=== PATIENT | male | born 1950 | race Caucasian/White ===

== ENCOUNTER 2017-09-22 11:04 | Emergency (ER) | payer MEDICARE ==
[2017-09-22 11:05] VITALS: BP 173/88; PULSE 84; RESP 18; TEMP 98; O2SAT 96
--- NOTE | 2017-09-22 11:53 | RADRPT ---
EXAM DATE/TIME: 09/22/2017 11:25 [facility] COMPARISON: No previous studies available for comparison. INDICATIONS : Pain. MEDICAL HISTORY : Gout SURGICAL HISTORY : None. ENCOUNTER: Initial ACUITY: 4 - 6 days PAIN SCORE: 9/10 LOCATION: Right Ankle FINDINGS: Three view exam was performed of the right ankle. The bony structures are in normal alignment. No e vidence of fracture, dislocation, or soft tissue swelling. The ankle mortise is intact. No radiopaq ue foreign bodies are seen. Bony mineralization is normal. CONCLUSION: Unremarkable examination of the right ankle. Zach Daniels MD on September 22, 2017 at 11:50 Board Certified Radiologist. This report was verified electronically.
[2017-09-22] MEDS ORDERED: ALLO100T PO (11:57)
--- NOTE | 2017-09-22 12:26 | PD ---
HPI Chief Complaint: Injury Time Seen by Provider: 12:05 Travel History International Travel<30 days: No Contact w/Intl Traveler<30days: No Traveled to known affect area: No History of Present Illness HPI 67-year-old male here with nontraumatic right ankle pain 7 days. Patient has history of gout. He reports his pain is similar. His usual gouty attacks are in his bilateral great toes. He denies fever or chills. He does report that he recently returned home from a camping vacation where he was drinking beer and eating a large amount of red meat which she believes prompted this gout attack. Symptom severity is moderate. Aggravated by walking and slightly relieved with rest. PFSH Past Medical History Cardiovascular Problems: Yes (HTN) Social History Alcohol Use: No Tobacco Use: No Substance Use: No Allergies-Medications (Allergen,Severity, Reaction): Coded Allergies: Penicillins (Verified Allergy, Unknown, 09/22/17) Reported Meds & Prescriptions Reported Meds & Active Scripts Active Reported Allopurinol 100 Mg Tab 100 Mg PO DAILY Review of Systems Except as stated in HPI: all other systems reviewed are Neg General / Constitutional: No: Fever Physical Exam Narrative GENERAL: Alert male. Well-appearing. SKIN: Warm and dry. HEAD: Normocephalic. EYES: No scleral icterus. No injection or drainage. NECK: Supple, trachea midline. No JVD or lymphadenopathy. CARDIOVASCULAR: Regular rate and rhythm RESPIRATORY: Breath sounds equal bilaterally. No accessory muscle use. MUSCULOSKELETAL: No cyanosis, or edema. Right ankle: Mild tenderness and swelling to the lateral malleolus. No warmth or erythema. Joint is stable. 2 + dorsal pedis pulse. Brisk cap refill. Data Data Last Documented VS Vital Signs Date Time Temp Pulse Resp B/P (MAP) Pulse Ox O2 Delivery O2 Flow Rate FiO2 09/22/17 12:45 09/22/17 11:05 98.0 84 18 96 Room Air Orders Orders Ankle, Complete ([id number]) (09/22/17 ) Dexamethasone Inj (Decadron Inj) (09/22/17 12:30) Ed Discharge Order (09/22/17 12:27) MDM Medical Decision Making Medical Screen Exam Complete: Yes Emergency Medical Condition: Yes Differential Diagnosis Gouty arthritis, ankle sprain, ankle fracture Narrative Course 67-year-old male with right ankle pain 7 days. Patient denies injury. Patient has history of gout reports this pain is similar. Exam he has mild tenderness and swelling of the lateral malleolus. Joint is stable. Extremity is neurovascular intact. X-ray is negative for fracture. The patient has a perception for Indocin at home. He was instructed to discontinue his allopurinol, start Indocin, follow gout diet, follow up with his PCP. Diagnosis Primary Impression: Ankle pain Qualified Codes: M25.571 - Pain in right ankle and joints of right foot Referrals: Primary Care Physician Additional Instructions: Start the indomethacin as directed. Follow a low purine diet. Follow-up with her primary doctor. Disposition: 01 DISCHARGE HOME Condition: Stable Jael Mahoney Sep 22, 2017 12:26
[2017-09-22] MEDS ORDERED: DEXAMETHASONE SOD PHOS 4 MG/ML VIAL IM ONE (12:30)
== END 2017-09-22 12:54 | disposition home or self-care (01) ==
LOC: NEPK 11:04
DX: M25.571 Pain in right ankle and joints of right foot (principal); I10 Essential (primary) hypertension
CPT/HCPCS: 73610; 96372; 99284; J1100

== ENCOUNTER 2018-01-29 16:10 | Emergency (ER) | payer MEDICARE ==
[~2018-01-29] VITALS: Ht 170.2 cm; Wt 90.0 kg
[~2018-01-29 16:10] MED LIST: ALLO100T PO
[2018-01-29 16:15] VITALS: BP 169/81; PULSE 76; RESP 16; TEMP 97.8; O2SAT 99
[2018-01-29] MEDS ORDERED: oxyCODONE/ACETAMINOPHEN 10 MG/325 MG TAB PO ONE (16:45)
[2018-01-29] MEDS ORDERED: predniSONE 20 MG TAB PO ONE (16:45)
[2018-01-29] MEDS ORDERED: ASPI81CH6 CHEW (16:51)
[2018-01-29] MEDS ORDERED: LISI-515 PO (16:51)
[2018-01-29] MEDS ORDERED: DICL75TA PO (16:51)
[2018-01-29] MEDS ORDERED: AMLO10TA2 PO (16:51)
[2018-01-29] MEDS ORDERED: GEMF600T PO (16:51)
[2018-01-29] MEDS ORDERED: PANT20TA2 PO (16:51)
--- NOTE | 2018-01-29 18:39 | RADRPT ---
EXAM DATE/TIME: 01/29/2018 17:33 [facility] COMPARISON: No previous studies available for comparison. INDICATIONS : Radiculopathy. Low back pain for two months. MEDICAL HISTORY : Hypertension. SURGICAL HISTORY : Hernia sx. ENCOUNTER: Initial ACUITY: 2 months PAIN SCORE: 8/10 LOCATION: Bilateral lower back region. TECHNIQUE: Multiplanar multisequence MRI of the lumbar spine was performed without contrast. FINDINGS: There are couple millimeters of degenerative retrolisthesis at L4/L5 and L5/S1. No fracture or acute appearing malalignment demonstrated. Vertebral bodies have normal height. Normal conus terminates at the level of L2. Scattered vertebral body hemangiomas are noted. T12-L1: The disc is desiccated but otherwise normal. Mild bilateral facet osteoarthritis. No foraminal or spi nal stenosis. L1-L2: The disc is within normal limits. Mild bilateral facet osteoarthritis. No foraminal or spinal stenosi s. L2-L3: The disc is desiccated and has mild loss of height. There is diffuse bulging of the disc annulus and mild bilateral facet osteoarthritis. There is mild bilateral foraminal stenosis, mostly on the left. L3-L4: The disc is desiccated and has mild loss of height. Small, broad/diffuse but especially left paracent ral/foraminal/lateral disc protrusion. There is mild narrowing of the left lateral recess and mild ri ght, moderate left foraminal stenosis. L4-L5: The disc is desiccated and has moderate to severe loss of height. There is endplate marrow edema. A d iffuse disc osteophyte complex is present. There is a superimposed large, inferiorly extruded right p aracentral disc fragment with narrowing of the right lateral recess. There is mild to moderate bilate ral foraminal stenosis. Grade 1 degenerative retrolisthesis. L5-S1: The disc is desiccated and has severe loss of height. Grade 1 degenerative retrolisthesis. Mild endpl ate marrow edema. There is a small moderate, broad/diffuse disc osteophyte complex and moderate bilat eral facet osteoarthritis. Mild spinal stenosis without definite transiting nerve root impingement. T here is moderate to severe right and moderate left foraminal stenosis. CONCLUSION: 1. Multilevel lumbar spine degenerative changes as detailed above. Most findings appear chronic but t here is a age-indeterminate large, inferiorly extruded right paracentral disc fragment at L4/L5 that is impinging on the transiting right L5 nerve root. 2. High-grade bilateral foraminal stenosis at L5/S1. Also moderate left foraminal stenosis at L3/L4. Generally mild or mild to moderate foraminal stenosis at other levels. Please see above. 3. Grade 1 degenerative retrolisthesis at both L4/L5 and L5/S1. I don't see a fracture or acute appea ring malalignment. Derrick Saenz MD on January 29, 2018 at 18:30 Board Certified Radiologist. This report was verified electronically.
--- NOTE | 2018-01-29 18:55 | PD ---
HPI Chief Complaint: Pain: Acute or Chronic Time Seen by Provider: 16:23 Travel History International Travel<30 days: No Contact w/Intl Traveler<30days: No Traveled to known affect area: No History of Present Illness HPI 67-year-old male presents emergency department with ongoing severe lower back pain and right hip pain which is been ongoing for 2 months. Patient is seen his orthopedist, Dr. Erickson, who referred him to pain management for a hip injection. He states he went to pain management who ordered an MRI for his lower back to ensure that he did not have a disc issue. Patient states he went to try and get the MRI today but was unable to stand the pain for an MRI to be done appropriately, he therefore went back to pain management which was closed, so he came here. Patient states he has not slept in several days due to the increasing lower back pain and right hip and radicular right leg pain. He denies any specific injury. He has had multiple x-rays of the hip knee and back , but no MRI. He denies bowel or bladder changes, but does have weakness in the right leg which she feels is due to the pain. He feels his right leg is somewhat atrophied over the last 2 months. Patient states his pain is 8 out of 10 sometimes worse. He is only given ibuprofen and tramadol which is not helping. He has no known drug allergies other than penicillin. PFSH Past Medical History Cardiovascular Problems: Yes (HTN) GERD: Yes Gout: Yes Hypertension: Yes Past Surgical History Abdominal Surgery: Yes Social History Alcohol Use: Yes Tobacco Use: Yes Substance Use: No Allergies-Medications (Allergen,Severity, Reaction): Coded Allergies: Penicillins (Verified Allergy, Unknown, 01/29/18) Reported Meds & Prescriptions Reported Meds & Active Scripts Active Gabapentin 100 Mg Cap 100 Mg PO TID Percocet (Oxycodone-Acetaminophen) 5-325 mg Tab 1 Tab PO Q6H PRN Reported Diclofenac Sodium DR (Diclofenac Sodium) 75 Mg Tabdr 75 Mg PO BID Lisinopril 20 Mg Tab 20 Mg PO DAILY Aspirin Low Dose (Aspirin) 81 Mg Chew 81 Mg CHEW DAILY Amlodipine (Amlodipine Besylate) 10 Mg Tab 10 Mg PO DAILY Gemfibrozil 600 Mg Tab 600 Mg PO BIDAC Take 30 minutes prior to breakfast and dinner. Pantoprazole (Pantoprazole Sodium) 20 Mg Tab 20 Mg PO DAILY Allopurinol 100 Mg Tab 100 Mg PO DAILY Review of Systems Except as stated in HPI: all other systems reviewed are Neg General / Constitutional: No: Fever Eyes: No: Visual changes HENT: No: Headaches Cardiovascular: No: Chest Pain or Discomfort Respiratory: No: Shortness of Breath Gastrointestinal: No: Abdominal Pain Genitourinary: No: Dysuria Musculoskeletal: Positive: Myalgias, Arthralgias, Limited ROM, Pain Skin: No Rash Neurologic: No: Weakness Psychiatric: No: Depression Endocrine: No: Polydipsia Hematologic/Lymphatic: No: Easy Bruising Physical Exam Narrative GENERAL: Patient appears in moderate distress. He is ambulatory to the room with a limp on the right SKIN: Warm and dry. Normal color. Normal turgor. No rash. HEAD: Atraumatic. Normocephalic. EYES: Pupils equal and round. No scleral icterus. No injection or drainage. ENT: No nasal bleeding or discharge. Mucous membranes pink and moist. Pharynx is clear. Airways patent. NECK: Trachea midline. Supple and nontender. CARDIOVASCULAR: Regular rate and rhythm. RESPIRATORY: No accessory muscle use. Clear to auscultation. Breath sounds equal bilaterally. GASTROINTESTINAL: Abdomen soft, non-tender, nondistended. Hepatic and splenic margins not palpable. MUSCULOSKELETAL: Extremities without clubbing, cyanosis, or edema. No obvious deformities. Patient has tenderness along the lumbar spine bilaterally but more on the right than the left into the right sciatic notch. He has positive straight leg raise pain at 40. Deep tendon reflexes are 2+ bilaterally in both patellar and Achilles tendons. Patient also has hip pain with inner and outer rotation of the hip. Plantar flexion and dorsiflexion are equal bilaterally. Patient has some diminished ability to flex the right hip which seems more due to pain as opposed to weakness. NEUROLOGICAL: Awake and alert. No obvious cranial nerve deficits. Motor grossly within normal limits. Five out of 5 muscle strength in the arms and legs. Normal speech. PSYCHIATRIC: Appropriate mood and affect; insight and judgment normal. Data Data Last Documented VS Vital Signs Date Time Temp Pulse Resp B/P (MAP) Pulse Ox O2 Delivery O2 Flow Rate FiO2 01/29/18 16:15 97.8 76 16 169/81 (110) 99 Orders Orders Oxycodone-Acetamin 10-325 Mg (Percocet 1 (01/29/18 16:45) Prednisone (Deltasone) (01/29/18 16:45) Mri L Spine W/O Contrast (01/29/18 16:41) Radiology Film Requests (01/29/18 ) Ed Discharge Order (01/29/18 18:57) [facility] Medical Decision Making Medical Screen Exam Complete: Yes Emergency Medical Condition: Yes Differential Diagnosis Lumbar pain. Sciatica. Right hip arthritis. Bursitis. Narrative Course Patient appears in moderate distress but medically stable. Patient was given Percocet 10/325 p.o. now. Patient is given 60 mg prednisone p.o. now. MRI of the lumbar spine is ordered to rule out significant disc impingement. MRI results show: CONCLUSION: 1. Multilevel lumbar spine degenerative changes as detailed above. Most findings appear chronic but there is a age-indeterminate large, inferiorly extruded right paracentral disc fragment at L4/L5 that is impinging on the transiting right L5 nerve root. 2. High-grade bilateral foraminal stenosis at L5/S1. Also moderate left foraminal stenosis at L3/L4. Generally mild or mild to moderate foraminal stenosis at other levels. Please see above. 3. Grade 1 degenerative retrolisthesis at both L4/L5 and L5/S1. I don't see a fracture or acute appearing malalignment. Patient will be treated on outpatient basis with prednisone 20 mg twice daily 5 days. Patient is given Percocet 5/325 one every 6 hours as needed pain #12. Patient also started on gabapentin 100 mg 3 times daily #30. Patient should follow-up with his pain management physician as well as his orthopedist next week. Copy of the MRI is given to the patient for discharge per Diagnosis Primary Impression: Chronic low back pain with right-sided sciatica Qualified Codes: M54.41 - Lumbago with sciatica, right side; G89.29 - Other chronic pain Additional Impression: Chronic right hip pain Patient Instructions: General Instructions Med/Other Pt SpecificInfo: Prescription(s) given Scripts Prednisone (Prednisone) 20 Mg Tab 20 MG PO BID for 5 Days, #10 TAB 0 Refills Prov: Osmar Hart MD 01/29/18 Gabapentin (Gabapentin) 100 Mg Cap 100 MG PO TID, #30 CAP 0 Refills Prov: Osmar Hart MD 01/29/18 Oxycodone-Acetaminophen (Percocet) 5-325 mg Tab 1 TAB PO Q6H Y for PAIN, #12 TAB 0 Refills Prov: Osmar Hart MD 01/29/18 Disposition: 01 DISCHARGE HOME Condition: Stable Chace Villagran Jan 29, 2018 18:55
[2018-01-29] MEDS ORDERED: PERC5TAB12 PO (18:57)
[2018-01-29] MEDS ORDERED: PRED20 PO (18:57)
[2018-01-29] MEDS ORDERED: GABA100C4 PO (18:57)
== END 2018-01-29 19:34 | disposition home or self-care (01) ==
LOC: NEPD 16:10
DX: M54.41 Lumbago with sciatica, right side (principal); G89.29 Other chronic pain; I10 Essential (primary) hypertension; Z72.0 Tobacco use
CPT/HCPCS: 72148; 99284; J7512

== ENCOUNTER 2018-05-23 11:18 | Observation (INO) ==
[2018-05-23] MEDS ORDERED: Sod Chloride 0.9% Inj 1,000 ML IV.SIG ONE (12:25)
[2018-05-23] MEDS ORDERED: Dexamethasone Inj 20 MG/5 ML Vial IV.PUSH ONE (12:25)
--- NOTE | 2018-05-23 12:34 | ED ---
HPI General Chief complaint: Skin/Abscess/Foreign Body Stated complaint: Face swell Time Seen by Provider: 05/23/18 12:17 Source: patient, family and RN notes reviewed Mode of arrival: ambulatory History of Present Illness HPI narrative: 67yM presenting with left facial swelling. The patient reports that he went to the bathroom around 3 AM and didn't notice any swelling to his face, but woke up for the day around 6 AM with significant left-sided facial swelling and pain. He has had a productive cough for the past 4-5 days but denies fever, chills, chest pain, sore throat, dental pain, or trauma. He takes lisinopril and has never had angioedema in the past; no family history of angioedema. No known new exposures (specifically, no new pets, plants, soaps, detergents, foods, or medications). Related Data Home Medications Medication Instructions Recorded Confirmed Aspirin Low Dose 81 mg DAILY 05/23/18 05/23/18 Calcium 500 600 mg DAILY 05/23/18 05/23/18 Centrum 1 tab DAILY 05/23/18 05/23/18 Mucinex 1 tab DAILY 05/23/18 05/23/18 Robitussin Cough and Cold CF 10 mg PRN 05/23/18 05/23/18 allopurinol 100 mg DAILY 05/23/18 05/23/18 amlodipine 10 mg DAILY 05/23/18 05/23/18 diclofenac sodium 75 mg DAILY 05/23/18 05/23/18 gabapentin 300 mg TID 05/23/18 05/23/18 gemfibrozil 600 mg DAILY 05/23/18 05/23/18 lisinopril 20 mg DAILY 05/23/18 05/23/18 pantoprazole 20 mg DAILY 05/23/18 05/23/18 Allergies Allergy/AdvReac Type Severity Reaction Status Date / Time Penicillins Allergy Unknown Verified 01/29/18 16:46 Review of Systems ROS: all other systems reviewed are negative Constitutional Denies fever(s) Eyes Denies blurry vision ENT Denies dental pain and Denies nasal congestion Cardiovascular Denies chest pain Respiratory Reports cough Gastrointestinal Denies nausea Genitourinary Denies dysuria Musculoskeletal Denies back pain Neurologic Denies confusion Psychiatric Denies confusion PMFSH History History Provided By: Patient Medical History Medical History Guerra esophagus (Acute) HTN (hypertension) (Acute) Hypercholesteremia (Acute) Social History Social History Substance History: No History of Abuse Smoking Status: Light tobacco smoker Tobacco Type: Cigarettes How Often Do You Have a Drink Containing Alcohol: Monthly or less Recent Travel in [facility] within the Last 8 Weeks: No Recent Out of Country Travel within the Last 8 Weeks: No Immunization History Tetanus Immunization: Unsure Exam Const General: healthy appearing and no acute distress HENMT Other: Significant swelling of left lower face from below orbit to mandible, (+ ) upper and lower lip swelling No trismus or drooling No dental trauma, caries, or gum swelling noted No tonsillar hypertrophy or exudate, uvula midline Mallampati III Eyes General: appearance normal, both eyes and all related structures Pupils: PERRL Neck Other: No stridor Chest Chest: normal inspection of the chest Resp Other: Lungs clear to auscultation bilaterally, no wheezing or rhonchi, normal work of breathing, no respiratory distress Cardio Rate: regular rate Rhythm: regular rhythm GI Inspection: non-distended Palpation: soft and nontender Skin General: no rashes or lesions noted Neuro General: alert, awake, oriented x3 and no focal motor deficits Psych Affect: normal affect Course Initial Documented Vital Signs Temperature 97.9 F 05/23/18 11:22 Pulse Rate 70 05/23/18 11:22 Respiratory Rate 17 05/23/18 11:22 Blood Pressure 133/64 05/23/18 11:22 Pulse Oximetry 96 05/23/18 11:22 Last Documented Vital Signs Temperature 97.9 F 05/23/18 11:22 Pulse Rate 73 05/23/18 13:13 Respiratory Rate 16 05/23/18 13:13 Blood Pressure 128/71 05/23/18 11:36 Pulse Oximetry 98 05/23/18 13:13 Medical Decision Making [facility] Narrative Medical decision making narrative: Assessment: 67yM presenting with left sided facial swelling Plan: Steroids CXR Labs CT facial bones Patient will need at least observation overnight for angioedema, presumably due to ARB Addendum: Patient's workup reveals no leukocytosis, mild elevation of eosinophils, normal lytes, and CT scan shows no discrete abscess. His symptoms are consistent with angioedema, likely medication-induced. He has no signs of cellulitis on exam. I explained the results of all labs and imaging to the patient as well as plan to keep him for observation; he understands and agrees. Case discussed with Dr. Ventura of [facility]. Medical Screen Exam Complete: Yes Emergency Medical Condition: Yes Differential Diagnosis Differential Diagnosis: Differential diagnosis includes, but is not limited to: angioedema, allergic reaction, facial abscess, pneumonia, bronchitis Lab Data Lab results reviewed: Yes I reviewed the patient's lab results. Result diagrams: 05/23/18 13:00 05/23/18 13:00 Lab Results 05/23/18 05/23/18 Range/Units 13:00 13:00 WBC 9.3 (4.0-11.0) th/mm3 RBC 4.27 L (4.50-5.90) mil/mm3 Hgb 13.0 (13.0-17.0) gm/dL Hct 39.5 (39.0-51.0) % MCV 92.5 (80.0-100.0) fL MCH 30.5 (27.0-34.0) pg MCHC 33.0 (32.0-36.0) % RDW 13.4 (11.6-17.2) % Plt Count 327 (150-450) th/mm3 MPV 8.2 (7.0-11.0) fL Neut % (Auto) 67.2 (16.0-70.0) % Lymph % (Auto) 18.2 (9.0-44.0) % [place]ock[place] % (Auto) 9.5 H (0.0-8.0) % Eos % (Auto) 4.2 H (0.0-4.0) % Baso % (Auto) 0.9 (0.0-2.0) % Neut # (Auto) 6.2 (1.8-7.7) th/mm3 Lymph # (Auto) 1.7 (1.0-4.8) th/mm3 [place]ock[place] # (Auto) 0.9 (0.0-0.9) th/mm3 Eos # (Auto) 0.4 (0.0-0.4) th/mm3 Baso # (Auto) 0.1 (0.0-0.2) th/mm3 WBC Differential . Differential Comment Auto diff final Sodium 136 (136-145) meq/L Potassium 4.8 (3.5-5.1) meq/L Chloride 100 (98-107) meq/L Carbon Dioxide 31.6 (21.0-32.0) meq/L Anion Gap 4 L (5-15) meq/L BUN 28 H (7-18) mg/dL Creatinine 1.29 (0.60-1.30) mg/dL Estimated GFR 56 L (>89) mL/min Random Glucose 91 (74-106) mg/dL Calcium 9.3 (8.5-10.1) mg/dL Total Bilirubin 0.2 (0.2-1.0) mg/dL AST 16 (15-37) U/L ALT 25 (12-78) U/L Alkaline Phosphatase 106 (45-117) U/L Total Protein 8.2 (6.4-8.2) g/dL Albumin 3.7 (3.4-5.0) g/dL Imaging Data Radiologist's impression: Chest X-Ray 05/23/18 12:25 CONCLUSION: No acute cardiopulmonary abnormality is identified. Face CT 05/23/18 12:25 CONCLUSION: 1. Findings most consistent with cellulitis involving the left inferior anterior perimandibular region. No discrete mass, drainable fluid collection, radiopaque foreign bodies or associated mandibular bony change. Discharge Plan Discharge Disposition Patient Disposition: 30 Still Patient Discharge Condition Condition: Stable Discharge Details Diagnosis: Angioedema Physicians Team ED Provider: Magali Lombardi Primary Care Provider: Tyler Londono Attending Provider: Tyler Ventura Discharge Interventions Interventions: Vital Signs Last Done: 05/23/18 13:13 Status ED Status: Admitted Observation Patient
--- NOTE | 2018-05-23 13:08 | XR ---
EXAM DATE: 05/23/2018 12:49 PM EDT AGE/SEX: 67 years / Male INDICATIONS: . Shortness of breath and left side of face is swollen. No known injury. CLINICAL DATA: This is the patient's initial encounter. Patient reports that signs and symptoms have been present for 1 day and indicates a pain score of 0/10. MEDICAL/SURGICAL HISTORY: Hypertension. None. COMPARISON: No prior exams available for comparison. FINDINGS: PA and lateral views of the chest demonstrate a normal-sized cardiac silhouette. There is no effusion , consolidation, or pneumothorax. The bones and soft tissues demonstrate no acute abnormality. CONCLUSION: No acute cardiopulmonary abnormality is identified. Electronically signed by: Derrick Gallardo MD 05/23/2018 1:07 PM EDT
[2018-05-23 13:25] LABS: Baso # (Auto) 0.1 th/mm3 (0.0-0.2); Baso % (Auto) 0.9 % (0.0-2.0); Eos # (Auto) 0.4 th/mm3 (0.0-0.4); Eos % (Auto) 4.2 % (0.0-4.0); Hematocrit 39.5 % (39.0-51.0); Lymph # (Auto) 1.7 th/mm3 (1.0-4.8); Lymph % (Auto) 18.2 % (9.0-44.0); Mean Corpuscular Hemoglobin 30.5 pg (27.0-34.0); Mean Corpuscular Volume 92.5 fL (80.0-100.0); Mean Platelet Volume 8.2 fL (7.0-11.0); Mono # (Auto) 0.9 th/mm3 (0.0-0.9); Mono % (Auto) 9.5 % (0.0-8.0); Neut # (Auto) 6.2 th/mm3 (1.8-7.7); Neut % (Auto) 67.2 % (16.0-70.0); Platelet Count 327 th/mm3 (150-450); Red Blood Count 4.27 mil/mm3 (4.50-5.90); Red Cell Distribution Width 13.4 % (11.6-17.2); White Blood Count 9.3 th/mm3 (4.0-11.0)
[2018-05-23 13:47] LABS: Alanine Aminotransferase 25 U/L (12-78); Albumin 3.7 g/dL (3.4-5.0); Anion Gap 4 meq/L (5-15); Aspartate Aminotransferase 16 U/L (15-37); Blood Urea Nitrogen 28 mg/dL (7-18); Calcium 9.3 mg/dL (8.5-10.1); Carbon Dioxide 31.6 meq/L (21.0-32.0); Chloride 100 meq/L (98-107); Glomerular Filtration Rate 56 mL/min (>89); Glucose,Random 91 mg/dL (74-106); Potassium 4.8 meq/L (3.5-5.1); Sodium 136 meq/L (136-145)
[2018-05-23 13:50] LABS: Alkaline Phosphatase 106 U/L (45-117); Total Protein 8.2 g/dL (6.4-8.2)
--- NOTE | 2018-05-23 15:50 | CT ---
EXAM DATE: 05/23/2018 3:40 PM EDT AGE/SEX: 67 years / Male INDICATIONS: Woke up with left side cheek swelling per patient CLINICAL DATA: This is the patient's initial encounter. Patient reports that signs and symptoms have been present for 1 day and indicates a pain score of 4/10. MEDICAL/SURGICAL HISTORY: Hypertension. Barretts esophagus None. RADIATION DOSE: 29.28 CTDI (mGy) COMPARISON: No prior exams available for comparison. TECHNIQUE: Contiguous images in the axial and coronal planes were obtained using helical multirow de tector technique with 65ML ml Omnipaque 350 (iohexol) nonionic water-soluble contrast as a single ex am dose. Using automated exposure control and adjustment of the mA and/or kV according to patient si ze, radiation dose was kept as low as reasonably achievable to obtain optimal diagnostic quality imag es. DICOM format image data is available electronically for review and comparison. FINDINGS: Orbits: The orbital and infraorbital osseous structures are intact. The retroconal structures have a normal configuration. No radiopaque foreign bodies are seen. Nasal Bone: The nasal bone and maxillary spine are intact. Zygomatic Arches: Symmetric without evidence of fracture. Sinuses: The maxillary, ethmoid, and frontal sinuses are intact. No air-fluid levels seen. Nasal Cavity: The nasal septum is intact and midline. The lacrimal ducts are intact. Soft Tissues: There is diffuse soft tissue stranding in the left inferior anterior perimandibular re gion. No discrete mass or drainable fluid collection. No radiopaque foreign bodies. No associated ero sive bony change in the left mandible. Submandibular glands do not appear to be involved. Intracranial: No intracranial air seen. Cribriform Plate: Grossly intact. Post Contrast: No additional abnormal areas of enhancement . CONCLUSION: 1. Findings most consistent with cellulitis involving the left inferior anterior perimandibular tara on. No discrete mass, drainable fluid collection, radiopaque foreign bodies or associated mandibular bony change. Electronically signed by: Temo Hassan MD 05/23/2018 3:48 PM EDT
[2018-05-23] MEDS ORDERED: Bisacodyl 10 MG Supp RECTAL PRN (16:26)
[2018-05-23] MEDS ORDERED: Acetaminophen 325 MG Tablet PO PRN (16:26)
[2018-05-23] MEDS ORDERED: Famotidine PF Inj 20 MG/2 ML Vial IV.PUSH ONE (16:29)
[2018-05-23] MEDS ORDERED: Morphine Inj 4 MG/ML Vial IV.PUSH PRN ×2 (16:34)
[2018-05-23] MEDS ORDERED: Naloxone Inj 0.4 MG/ML Vial IV.PUSH PRN (16:34)
[2018-05-23] MEDS ORDERED: oxyCODONE/Acetaminophen 10/325 Tablet PO PRN (16:34)
[2018-05-23] MEDS ORDERED: [UNRECOGNIZED DRUG - OTHER] PO PRN (16:35)
[2018-05-23] MEDS ORDERED: Dextromethorphan Syrup 7.5 MG/5 ML UDC PO PRN (16:52)
--- NOTE | 2018-05-23 16:55 | P.HPIM ---
History of Present Illness Service: [facility] Primary Care Physician: Tyler Londono Chief Complaint: Swelling on left side of his face History of Present Illness: Patient is a 67-year-old male who presented with left facial swelling. Patient reports that he went to the bathroom around 3 AM and did not notice any swelling phase, but when he woke up this morning around 6 AM he noticed significant left-sided facial swelling and pain. He has had a cough for the past 4-5 days denies any fevers, denies any chills, denies any chest pain, denies any sore throat, denies any dental pain, denies any trauma. He has been taking lisinopril. Has never had angioedema in the past. No family history of anybody having angioedema or swelling. No new exposures It was felt the patient has angioedema more than likely secondary to lisinopril. Even though he has been on it for about 6 years We will hold his lisinopril. We will give him prednisone, Pepcid, and Benadryl Will observe him tonight and hopefully discharge tomorrow Review of Systems All other systems reviewed negative except as stated in HPI PMFSH - History History Provided By: Patient - Medical History Medical History: Medical History (Last Reviewed 05/23/18 @ 12:35 by Magali Lombardi DO) Guerra esophagus HTN (hypertension) Hypercholesteremia - Surgical History Surgical History: Surgical History (Last Updated 05/23/18 @ 16:50 by Tyler Ventura DO) H/O hernia repair - Family History Family History: Family History (Last Updated 05/23/18 @ 16:50 by Tyler Ventura DO) Other Family history of hypertension - Tobacco History Tobacco Use In Past 30 Days: Yes Smoking Status: Light tobacco smoker Tobacco Type: Cigarettes - Alcohol History How Often Do You Have a Drink Containing Alcohol: Monthly or less - Substance Use History Substance History: No History of Abuse - Travel History Recent Travel in the [place] Within the Last 8 Weeks: No Recent Travel Out of the Country Within the Last 8 Weeks: No - Immunization History Tetanus Immunization: Unsure Medications and Allergies Active Medications: Active Medications Acetaminophen (Tylenol) 650 mg PO Q4H PRN PRN Reason: Temp > 100.4 Al Hydroxide/Mg Hydroxide (Milk Of Magnesia Liq) 30 ml PO Q12H PRN PRN Reason: Mild Constipation Albuterol (Duoneb Neb (Prn)) 1 ampul NEB Q2HR NEB PRN PRN Reason: SHORTNESS OF BREATH Allopurinol (Zyloprim) 100 mg PO DAILY [facility] Amlodipine Besylate (Norvasc) 10 mg PO DAILY [facility] Aspirin (Ecotrin) 81 mg PO DAILY [facility] Bisacodyl (Dulcolax Supp) 10 mg RECTAL DAILY PRN PRN Reason: SEVERE CONSITIPATION Diphenhydramine HCl (Benadryl Inj) 25 mg IV.PUSH Q6H [facility] Famotidine (Pepcid Pf Inj) 20 mg IV.PUSH Q12HR [facility] Gabapentin (Neurontin) 300 mg PO TID [facility] Gemfibrozil (Lopid) 600 mg PO DAILY [facility] Guaifenesin (Mucinex Er) 600 mg PO BID [facility] Heparin Sodium (Porcine) (Heparin Inj) 5,000 units SQ Q8H [facility] Lactulose (Lactulose Liq) 30 ml PO DAILY PRN PRN Reason: SEVERE CONSITIPATION Morphine Sulfate (Morphine Inj) 4 mg IV.PUSH Q3H PRN PRN Reason: PAIN 6-10;IF UNABLE TO TAKE PO Morphine Sulfate (Morphine Inj) 2 mg IV.PUSH Q3H PRN PRN Reason: PAIN 3-5; IF UABLE TO TAKE PO Multivitamins (Theragran) 1 tab PO DAILY [facility] Naloxone HCl (Narcan Inj) 0.4 mg IV.PUSH UNSCH PRN PRN Reason: SEE LABEL COMMENTS Non-Formulary Medication (Pantoprazole) 20 mg PO DAILY [facility] Non-Formulary Medication (Robitussin Cough And Cold Cf) 10 mg PO Q6HR PRN PRN Reason: COUGH Ondansetron HCl (Zofran Inj) 4 mg IV.PUSH Q6H PRN PRN Reason: NAUSEA OR VOMITING Oxycodone/Acetaminophen (Percocet 10/325 Mg) 1 tab PO Q6H PRN PRN Reason: PAIN SCALE 6 TO 10 Oxycodone/Acetaminophen (Percocet 5/325 Mg) 1 tab PO Q6H PRN PRN Reason: PAIN SCALE 3 TO 5 Prednisone (Deltasone) 20 mg PO BID [facility] Senna/Docusate Sodium (Francoise-Colace) 1 tab PO BID [facility] Sennosides (Senokot) 17.2 mg PO Q12H PRN PRN Reason: Moderate Constipation Sodium Chloride (Ns Flush) 2 ml IV.FLUSH PRN PRN PRN Reason: FLUSH AFTER USING IV ACCESS Allergies Allergy/AdvReac Type Severity Reaction Status Date / Time Penicillins Allergy Unknown Verified 01/29/18 16:46 Home Medications Medication Instructions Recorded Confirmed Type Aspirin Low Dose 81 mg DAILY 05/23/18 05/23/18 History Calcium 500 600 mg DAILY 05/23/18 05/23/18 History Centrum 1 tab DAILY 05/23/18 05/23/18 History Mucinex 1 tab DAILY 05/23/18 05/23/18 History Robitussin Cough and Cold CF 10 mg PRN 05/23/18 05/23/18 History allopurinol 100 mg DAILY 05/23/18 05/23/18 History amlodipine 10 mg DAILY 05/23/18 05/23/18 History diclofenac sodium 75 mg DAILY 05/23/18 05/23/18 History gabapentin 300 mg TID 05/23/18 05/23/18 History gemfibrozil 600 mg DAILY 05/23/18 05/23/18 History lisinopril 20 mg DAILY 05/23/18 05/23/18 History pantoprazole 20 mg DAILY 05/23/18 05/23/18 History Exam Vital signs: Vital Signs 05/23/18 11:22 05/23/18 11:36 05/23/18 13:13 Temperature 97.9 F Pulse Rate 70 79 73 Respiratory Rate 17 16 16 Blood Pressure 133/64 128/71 Pulse Oximetry 96 94 L 98 Intake & Output 05/22/18 05/23/18 05/23/18 18:59 06:59 18:59 Intake Total 1000 / 1000 Balance 1000 / 1000 Weight 86.183 kg Intake: IV 1000 / 1000 NS Inj 1,000 ML @ Wide Open IV. 1000 / 1000 SIG BOLUS ONE Rx#:[id number] Other: # Voids 1 Narrative: GENERAL: Awake alert and oriented 3 talkative and cooperative SKIN: Warm and dry. Some left-sided facial swelling HEAD: Atraumatic. Normocephalic. EYES: Pupils equal and round. No scleral icterus. No injection or drainage. ENT: No nasal bleeding or discharge. Mucous membranes pink and moist. Left- sided facial swelling NECK: Trachea midline. No JVD. Supple CARDIOVASCULAR: Regular rate and rhythm. S1-S2 no S3 or S4 RESPIRATORY: No accessory muscle use. Clear to auscultation. Breath sounds equal bilaterally. GASTROINTESTINAL: Abdomen soft, non-tender, nondistended. Hepatic and splenic margins not palpable. MUSCULOSKELETAL: Extremities without clubbing, cyanosis, or edema. No obvious deformities. NEUROLOGICAL: Awake and alert. No obvious cranial nerve deficits. Motor grossly within normal limits. Five out of 5 muscle strength in the arms and legs. Normal speech. PSYCHIATRIC: Appropriate mood and affect; insight and judgment normal. Results - Labs CBC & Chem 7: 05/23/18 13:00 05/23/18 13:00 Labs: Short CBC 05/23/18 Range/Units 13:00 WBC 9.3 (4.0-11.0) th/mm3 Hgb 13.0 (13.0-17.0) gm/dL Hct 39.5 (39.0-51.0) % Plt Count 327 (150-450) th/mm3 BMP 05/23/18 13:00 Sodium 136 Potassium 4.8 Chloride 100 Carbon Dioxide 31.6 BUN 28 H Creatinine 1.29 Calcium 9.3 Liver Function 05/23/18 Range/Units 13:00 Total Bilirubin 0.2 (0.2-1.0) mg/dL AST 16 (15-37) U/L ALT 25 (12-78) U/L Alkaline Phosphatase 106 (45-117) U/L Albumin 3.7 (3.4-5.0) g/dL - Imaging Impressions Chest X-Ray 05/23/18 12:25 CONCLUSION: No acute cardiopulmonary abnormality is identified. Face CT 05/23/18 12:25 CONCLUSION: 1. Findings most consistent with cellulitis involving the left inferior anterior perimandibular region. No discrete mass, drainable fluid collection, radiopaque foreign bodies or associated mandibular bony change. Caprini VTE Risk Assessment Caprini VTE Risk Assessment: No/Low Risk (score <= 1) Caprini Risk Assessment Model: Point Value = 1 Point Value = 2 Point Value = 3 Point Value = 5 Age 41-60 Minor surgery BMI > 25 kg/m2 Swollen legs Varicose veins or History of unexplained or recurrent spontaneous Oral contraceptives or hormone replacement Sepsis (< 1 month) Serious lung disease, including pneumonia (< 1 month) Abnormal pulmonary function Acute myocardial infarction Congestive heart failure (< 1 month) History of inflammatory bowel disease Medical patient at bed rest Age 61-74 Arthroscopic surgery Major open surgery (> 45 min) Laparoscopic surgery (> 45 min) Malignancy Confined to bed (> 72 hours) Immobilizing plaster cast Central venous access Age >= 75 History of VTE Family history of VTE Factor V Leiden Prothrombin [id number] Lupus anticoagulant Anticardiolipin antibodies Elevated serum homocysteine Heparin-induced thrombocytopenia Other congenital or acquired thrombophilia Stroke (< 1 month) Elective arthroplasty Hip, pelvis, or leg fracture Acute spinal cord injury (< 1 month) Prophylaxis Regimen: Total Risk Factor Score Risk Level Prophylaxis Regimen 0-1 Low Early ambulation 2 Moderate Order ONE of the following: *Sequential Compression Device (SCD) *Heparin 5000 units SQ BID 3-4 Higher Order ONE of the following medications: *Heparin 5000 units SQ TID *Enoxaparin/Lovenox 40 mg SQ daily (WT < 150 kg, CrCl > 30 mL/min) *Enoxaparin/Lovenox 30 mg SQ daily (WT < 150 kg, CrCl > 10-29 mL/min) *Enoxaparin/Lovenox 30 mg SQ BID (WT < 150 kg, CrCl > 30 mL/min) AND/OR *Sequential Compression Device (SCD) 5 or more Highest Order ONE of the following medications: *Heparin 5000 units SQ TID (Preferred with Epidurals) *Enoxaparin/Lovenox 40 mg SQ daily (WT < 150 kg, CrCl > 30 mL/min) *Enoxaparin/Lovenox 30 mg SQ daily (WT < 150 kg, CrCl > 10-29 mL/min) *Enoxaparin/Lovenox 30 mg SQ BID (WT < 150 kg, CrCl > 30 mL/min) AND *Sequential Compression Device (SCD) Assessment and Plan - Plan Left-sided facial angioedema more likely secondary to lisinopril -Hold lisinopril obviously -Continue on prednisone and Pepcid and Benadryl -Observe overnight --Does not appear to be Cruz's palsy type symptoms Gout continue on allopurinol Back pain normally takes either diclofenac/Aleve will hold this Cough continue on the Mucinex and add Robitussin and DuoNeb's as needed Neuropathy continue on his gabapentin Hypertension hold his lisinopril and continue on the amlodipine-may need adjustments will have Catapres available Guerra's esophagus/GERD continue on Protonix Hyperlipidemia continue on gemfibrozil DVT prophylaxis heparin GI prophylaxis with PPI and Pepcid Hopefully patient can be discharged tomorrow if swelling is improved no issues of breathing and no problems with shortness of breath and difficulty swallowing We will give him a cardiac diet Code Status: Full code Discussed Condition With: Discussed with RN and patient and emergency room physician and family Discharge Planning: Hopefully discharge within the next 24-48 hours unless worse swelling and angioedema of the left side of his face
[2018-05-23] MEDS: Gabapentin 300 MG Capsule PO SCH (17:19)
[2018-05-23] MEDS: Heparin - SQ 10,000 UNITS/ML Vial SQ SCH (17:19)
[2018-05-23] MEDS: guaiFENesin 600 MG ER Tablet PO SCH (21:20)
[2018-05-23] MEDS: predniSONE 20 MG Tablet PO SCH (21:20)
[2018-05-23] MEDS: Senna/Docusate Sodium 8.6/50 MG Tablet PO SCH ×2 (21:21→21:39)
[2018-05-23] MEDS: Famotidine PF Inj 20 MG/2 ML Vial IV.PUSH SCH (21:27)
[2018-05-24] MEDS: Heparin - SQ 10,000 UNITS/ML Vial SQ SCH ×2 (03:06→09:30)
[2018-05-24 07:32] VITALS: BP 156/88; PULSE 80; RESP 18; TEMP 98
[2018-05-24 08:24] LABS: Baso % (Auto) 0.3 % (0.0-2.0); Eos % (Auto) 0.1 % (0.0-4.0); Hematocrit 38.5 % (39.0-51.0); Hemoglobin 12.7 gm/dL (13.0-17.0); Lymph # (Auto) 1.3 th/mm3 (1.0-4.8); Mean Corpuscular HGB Conc 32.9 % (32.0-36.0); Mean Corpuscular Hemoglobin 30.4 pg (27.0-34.0); Mean Corpuscular Volume 92.3 fL (80.0-100.0); Mean Platelet Volume 8.1 fL (7.0-11.0); Mono # (Auto) 0.8 th/mm3 (0.0-0.9); Mono % (Auto) 5.4 % (0.0-8.0); Neut # (Auto) 12.2 th/mm3 (1.8-7.7); Neut % (Auto) 85.2 % (16.0-70.0); Platelet Count 335 th/mm3 (150-450); Red Blood Count 4.17 mil/mm3 (4.50-5.90); Red Cell Distribution Width 13.6 % (11.6-17.2); White Blood Count 14.3 th/mm3 (4.0-11.0)
[2018-05-24 08:30] VITALS: O2SAT 95
[2018-05-24] MEDS ORDERED: Allopurinol 100 MG Tablet PO SCH (09:00)
[2018-05-24] MEDS ORDERED: Gemfibrozil 600 MG Tablet PO SCH (09:00)
[2018-05-24] MEDS ORDERED: amLODIPine 10 MG Tablet PO SCH (09:00)
[2018-05-24 09:05] LABS: Alanine Aminotransferase 25 U/L (12-78); Albumin 3.8 g/dL (3.4-5.0); Alkaline Phosphatase 108 U/L (45-117); Anion Gap 7 meq/L (5-15); Aspartate Aminotransferase 12 U/L (15-37); Blood Urea Nitrogen 18 mg/dL (7-18); Calcium 10.2 mg/dL (8.5-10.1); Carbon Dioxide 32.2 meq/L (21.0-32.0); Chloride 102 meq/L (98-107); Free T4 (Free Thyroxine) 0.79 ng/dL (0.76-1.46); Glomerular Filtration Rate 78 mL/min (>89); Glucose,Random 117 mg/dL (74-106); Magnesium 2.4 mg/dL (1.5-2.5); Phosphorus 2.4 mg/dL (2.5-4.9); Potassium 4.9 meq/L (3.5-5.1); Sodium 141 meq/L (136-145); Total Protein 8.5 g/dL (6.4-8.2)
[2018-05-24 09:14] LABS: Lymphocytes 7 % (9-44); Metamyelocytes 1 % (0-1); Monocytes 4 % (0-8); Platelet Estimate Normal (Normal); Platelet Morphology Normal (Normal)
[2018-05-24] MEDS: Pantoprazole Sodium 20 MG DR Tablet PO SCH ×2 (09:30)
[2018-05-24] MEDS: guaiFENesin 600 MG ER Tablet PO SCH (09:30)
[2018-05-24] MEDS: Famotidine PF Inj 20 MG/2 ML Vial IV.PUSH SCH (09:30)
[2018-05-24] MEDS: Gabapentin 300 MG Capsule PO SCH (09:30)
[2018-05-24] MEDS: Senna/Docusate Sodium 8.6/50 MG Tablet PO SCH (09:30)
[2018-05-24] MEDS: predniSONE 20 MG Tablet PO SCH (09:30)
--- NOTE | 2018-05-24 10:29 | P.DS ---
Date of admission: 05/23/18 16:30 Primary care physician: Tyler Londono Brief History from admission: Patient is a 67-year-old male who presented with left facial swelling. Patient reports that he went to the bathroom around 3 AM and did not notice any swelling phase, but when he woke up this morning around 6 AM he noticed significant left-sided facial swelling and pain. He has had a cough for the past 4-5 days denies any fevers, denies any chills, denies any chest pain, denies any sore throat, denies any dental pain, denies any trauma. He has been taking lisinopril. Has never had angioedema in the past. No family history of anybody having angioedema or swelling. No new exposures It was felt the patient has angioedema more than likely secondary to lisinopril. Even though he has been on it for about 6 years We will hold his lisinopril. We will give him prednisone, Pepcid, and Benadryl Will observe him tonight and hopefully discharge tomorrow DS: Medications - Discharge Medications Prescriptions: omeprazole 10 mg PO DAILY 4 Days #4 cap prednisone 10 mg PO DIRECTED #6 tab DS: Summary Hospital Course: Mr. Mello is a 67-year-old male. He was admitted secondary to angioedema. Lisinopril is a suspected etiology. Lisinopril has been stopped. He was treated with prednisone and Benadryl overnight. He is improving through time. Feeling at baseline now. Medically stable and safe for discharge home. He will continue prednisone taper at home. He will continue omeprazole for 4 days. Discharge home today. - Time Spent with Patient Total time spent providing and/or coordinating discharge services: Less than 30 minutes - Quality: VTE Deep Vein Thrombosis/Pulmonary Embolism Present on Admission: No Exam Vital signs: Vital Signs 05/23/18 11:22 05/23/18 11:36 05/23/18 13:13 Temperature 97.9 F Pulse Rate 70 79 73 Respiratory Rate 17 16 16 Blood Pressure 133/64 128/71 Pulse Oximetry 96 94 L 98 05/23/18 19:30 05/23/18 20:00 05/24/18 00:00 Temperature 97.8 F 98.0 F Pulse Rate 91 H 80 Respiratory Rate 22 22 Blood Pressure 159/79 H 156/79 H Pulse Oximetry 98 99 92 L 05/24/18 03:48 05/24/18 05:30 05/24/18 07:30 Temperature 97.6 F 98.0 F Pulse Rate 78 80 80 Respiratory Rate 22 18 Blood Pressure 156/86 H 156/88 H Pulse Oximetry 90 L 93 L 05/24/18 08:30 Temperature Pulse Rate Respiratory Rate Blood Pressure Pulse Oximetry 95 Intake & Output 05/23/18 05/24/18 05/24/18 18:59 06:59 18:59 Intake Total 1000 / 1000 600 / 600 Balance 1000 / 1000 600 / 600 Weight 86.183 kg Intake: IV 1000 / 1000 NS Inj 1,000 ML @ Wide Open IV. 1000 / 1000 SIG BOLUS ONE Rx#:[id number] Oral 600 / 600 Other: # Voids 1 2 Date of Last Bowel Movement 05/23/18 Weight On Admission 86.183 kg Results Procedures completed during hospitalization: None Labs on day of discharge: Labs from last 24 hours 05/24/18 05/24/18 05/24/18 07:49 07:49 07:49 WBC 14.3 H D RBC 4.17 L Hgb 12.7 L Hct 38.5 L MCV 92.3 MCH 30.4 MCHC 32.9 RDW 13.6 Plt Count 335 MPV 8.1 Prelim Diff (Auto) Slide review pending Neut % (Auto) 85.2 H Lymph % (Auto) 9.0 [place] % (Auto) 5.4 Eos % (Auto) 0.1 Baso % (Auto) 0.3 Neut # (Auto) 12.2 H Lymph # (Auto) 1.3 [place] # (Auto) 0.8 Eos # (Auto) 0.0 Baso # (Auto) 0.0 WBC Differential Manual diff final Seg Neuts % (Manual) 83 H Band Neuts % (Manual) 5 Lymphocytes % (Manual) 7 L Monocytes % (Manual) 4 Metamyelocytes % (Man) 1 Abs Neuts (Manual) 12.7 H Differential Comment . Platelet Estimate Normal Platelet Morphology Normal Sodium 141 Potassium 4.9 Chloride 102 Carbon Dioxide 32.2 H Anion Gap 7 BUN 18 Creatinine 0.96 Estimated GFR 78 L POC Glucose Random Glucose 117 H Hemoglobin A1c Pending Calcium 10.2 H D Phosphorus 2.4 L Magnesium 2.4 Total Bilirubin 0.1 L AST 12 L ALT 25 Alkaline Phosphatase 108 Total Protein 8.5 H Albumin 3.8 TSH 1.130 Free T4 0.79 05/23/18 05/23/18 05/23/18 18:15 18:14 13:00 WBC RBC Hgb Hct MCV MCH MCHC RDW Plt Count MPV Prelim Diff (Auto) Neut % (Auto) Lymph % (Auto) [place] % (Auto) Eos % (Auto) Baso % (Auto) Neut # (Auto) Lymph # (Auto) [place] # (Auto) Eos # (Auto) Baso # (Auto) WBC Differential Seg Neuts % (Manual) Band Neuts % (Manual) Lymphocytes % (Manual) Monocytes % (Manual) Metamyelocytes % (Man) Abs Neuts (Manual) Differential Comment Platelet Estimate Platelet Morphology Sodium 136 Potassium 4.8 Chloride 100 Carbon Dioxide 31.6 Anion Gap 4 L BUN 28 H Creatinine 1.29 Estimated GFR 56 L POC Glucose 260 H 247 H Random Glucose 91 Hemoglobin A1c Calcium 9.3 Phosphorus Magnesium Total Bilirubin 0.2 AST 16 ALT 25 Alkaline Phosphatase 106 Total Protein 8.2 Albumin 3.7 TSH Free T4 05/23/18 13:00 WBC 9.3 RBC 4.27 L Hgb 13.0 Hct 39.5 MCV 92.5 MCH 30.5 MCHC 33.0 RDW 13.4 Plt Count 327 MPV 8.2 Prelim Diff (Auto) Neut % (Auto) 67.2 Lymph % (Auto) 18.2 [place] % (Auto) 9.5 H Eos % (Auto) 4.2 H Baso % (Auto) 0.9 Neut # (Auto) 6.2 Lymph # (Auto) 1.7 [place] # (Auto) 0.9 Eos # (Auto) 0.4 Baso # (Auto) 0.1 WBC Differential . Seg Neuts % (Manual) Band Neuts % (Manual) Lymphocytes % (Manual) Monocytes % (Manual) Metamyelocytes % (Man) Abs Neuts (Manual) Differential Comment Auto diff final Platelet Estimate Platelet Morphology Sodium Potassium Chloride Carbon Dioxide Anion Gap BUN Creatinine Estimated GFR POC Glucose Random Glucose Hemoglobin A1c Calcium Phosphorus Magnesium Total Bilirubin AST ALT Alkaline Phosphatase Total Protein Albumin TSH Free T4 - Impressions ITS Impressions Chest X-Ray 05/23/18 12:25 CONCLUSION: No acute cardiopulmonary abnormality is identified. Face CT 05/23/18 12:25 CONCLUSION: 1. Findings most consistent with cellulitis involving the left inferior anterior perimandibular region. No discrete mass, drainable fluid collection, radiopaque foreign bodies or associated mandibular bony change. Discharge Plan - Discharge Disposition Patient Disposition: 01 Discharge Home - Discharge Condition Condition: Stable - Discharge Order Discharge Orders: Discharge Order (Routine); Ordered 05/24/18 Ordered By: Naif Adorno - Discharge Details Anticipated Discharge Date: 05/24/18 - Physicians Team Primary Care Provider: Tyler Londono Attending Provider: Naif Adorno
[2018-05-24 14:44] LABS: Hemoglobin A1c 6.1 % (4.3-6.0)
== END 2018-05-24 12:24 | disposition home or self-care (01) ==
LOC: NEPD 11:18 → NEDA 11:18 → NEPFCDU 11:18 → NEDA 17:58 → NEPFCDU 18:07
PROVIDERS: ADMIT Hospitalist; ATTEND Hospitalist